=== PATIENT | female | born 1950 ===

== ENCOUNTER 2023-08-08 08:14 | Outpatient (CLI) | payer OTHER | END 2023-08-08 08:15 | disposition home or self-care (01) | LOC: RX STUDY 08:14 | PROVIDERS: ATTEND Otolaryngology | DX: R13.10 Dysphagia, unspecified (principal); H70.13 Chronic mastoiditis, bilateral; H61.23 Impacted cerumen, bilateral; H90.3 Sensorineural hearing loss, bilateral; J30.9 Allergic rhinitis, unspecified; J06.0 Acute laryngopharyngitis ==

== ENCOUNTER 2024-03-02 09:13 | Outpatient (CLI) | payer OTHER | END 2024-03-02 09:16 | disposition home or self-care (01) | LOC: SONOGRAMA 09:13 | PROVIDERS: ATTEND Pathology Anatomic Pathology & Clinical Pathology | DX: D44.0 Neoplasm of uncertain behavior of thyroid gland (principal); D34 Benign neoplasm of thyroid gland; E06.3 Autoimmune thyroiditis; E04.2 Nontoxic multinodular goiter ==

== ENCOUNTER 2024-03-11 22:47 | Emergency (ER) | payer OTHER ==
[~2024-03-11] VITALS: Ht 152.4 cm; Wt 83.5 kg
[2024-03-11] MEDS ORDERED: LANTUS SOL100 UNIT/1 (22:56)
[2024-03-12] MEDS ORDERED: PROMETHAZINE HCL 50 MG/ML AMPUL IM STA (00:23)
[2024-03-12] MEDS ORDERED: MEPERIDINE HCL/PF 25 MG/ML VIAL IM STA (00:24)
[2024-03-12] MEDS ORDERED: FAMOTIDINE/PF 20 MG/2 ML VIAL IV PUSH STA (00:24)
[2024-03-12] MEDS ORDERED: 0.9 % SODIUM CHLORIDE 1,000 ML IV ONE (00:30)
[2024-03-12 01:14] LABS: HEMATOCRIT 41.7 % (36.0-45.00); HEMOGLOBIN 13.8 g/dL (12.0-15.00); MEAN CELL VOLUME 92.2 fL (80.00-100.00); MEAN CORPUSCULAR HEMOGLOBIN 30.5 pg (27.00-32.0); MEAN CORPUSCULAR HGB CONC 33.1 g/dl (32.0-36.0); PLATELET COUNT 133 K/uL (150-450); RED BLOOD COUNT 4.52 M/uL (4.00-6.00); RED CELL DISTRIBUTION WIDTH 13.5 % (11.5-14.5)
[2024-03-12 01:35] LABS: INR 1.1; PARTIAL THROMBOPLASTIN TIME 23.4 SECONDS (22.0-34.0); PROTHROMBIN TIME 11.5 SECONDS (9.0-11.5)
[2024-03-12 01:39] LABS: ALBUMIN 3.3 gm/dL (3.4-5.0); BILIRUBIN TOTAL 0.89 mg/dL (0.3-1.2); BILIRUBIN,CONJUGATED 0.27 mg/dL (0.0-0.2); BILIRUBIN,UNCONJUGATED 0.62 mg/dL (0.0-0.6); CALCIUM 9.8 mg/dL (8.5-10.1); CREATININE SERUM 0.78 mg/dL (0.55-1.02); GFR 72.6; POTASSIUM 3.56 mEq/L (3.5-5.1); TOTAL PROTEIN 7.3 gm/dL (6.4-8.2)
[2024-03-12 03:54] LABS: URINE APPEARANCE Clear; URINE BILIRRUBIN Negative (NEGATIVE); URINE BLOOD Negative; URINE COLOR Yellow; URINE LEUKOCYTE Negative; URINE NITRATE Negative; URINE PROTEIN Negative (NEGATIVE); URINE UROBILINOGEN 0.2 E.U./dl
[2024-03-12 03:58] LABS: URINE BACTERIA 93.2 uL (0.0-1933); URINE EPITHELIAL CELLS 15.2 uL (0.0-38.8); URINE RBC 27.1 uL (0.0-20.8); URINE WBC 3.3 uL (0.0-23.2)
[2024-03-12 04:10] LABS: URINE GLUCOSE >=1000 MG/DL (NEGATIVE)
[2024-03-12] MEDS ORDERED: ONDANSETRON ODT4 MG PO (06:35)
[2024-03-12] MEDS ORDERED: PEPCID40 MG PO (06:35)
== END 2024-03-12 07:10 ==
LOC: ER 22:47
PROVIDERS: General Practice
DX: R10.13 Epigastric pain (principal); R11.2 Nausea with vomiting, unspecified; R10.9 Unspecified abdominal pain; I10 Essential (primary) hypertension; E11.9 Type 2 diabetes mellitus without complications; Z79.4 Long term (current) use of insulin
CPT/HCPCS: 36415; 93005; 96365; 96366; 96372; 99282; J2550; J3490 ×2; J7030

== ENCOUNTER 2025-03-29 11:02 | Outpatient (CLI) | payer OTHER ==
[~2025-03-29 11:02] MED LIST: LANTUS SOL100 UNIT/1; ONDANSETRON ODT4 MG PO; PEPCID40 MG PO
== END 2025-03-29 11:03 | disposition home or self-care (01) ==
LOC: SONOGRAMA 11:02
PROVIDERS: ATTEND Pathology Anatomic Pathology & Clinical Pathology
DX: D44.0 Neoplasm of uncertain behavior of thyroid gland (principal); E04.2 Nontoxic multinodular goiter